=== PATIENT | male | born 1985 | race Caucasian/White ===

== ENCOUNTER → 2021-06-04 | Emergency (ER) | payer OTHER ==
[~2021-06-04] MED LIST: LASIX20 MG PO
[2021-06-04 16:29] LABS: HEMOGLOBIN 9.2 gm/dl (14.0-17.5); RED BLOOD COUNT 3.17 M/UL (4.20-5.50); WHITE BLOOD COUNT 7.7 K/UL (4.5-11.0)
[2021-06-04 16:51] LABS: BUN/CREATININE RATIO 8 (0-10)
== END | disposition home or self-care (01) ==
LOC: ER1 15:33
PROVIDERS: Physician Assistant
DX: R60.0 Localized edema (principal); D64.9 Anemia, unspecified
CPT/HCPCS: 36415; 80053; 83880; 85025; 99283